=== PATIENT | female | born 1975 | race American Indian/Alaskan Native ===

== ENCOUNTER 2022-04-11 11:30 | Day surgery (SDC) | payer OTHER ==
[~2022-04-11 11:30] MED LIST: Lactated Ringers 1,000 ML IV SCH
[2022-04-11] MEDS ORDERED: Propofol 200 MG/20 ML SDV ONE ×2 (13:20→13:33)
[2022-04-11] MEDS ORDERED: Lidocaine 2% 5 ML SDV ONE (13:20)
[2022-04-11] MEDS ORDERED: Lactated Ringers 1,000 ML IV SCH (14:00)
== END 2022-04-11 14:14 | disposition home or self-care (01) ==
LOC: MW.SDS 11:30
PROVIDERS: ATTEND Surgery
DX: K62.5 Hemorrhage of anus and rectum (principal); K59.09 Other constipation; E66.9 Obesity, unspecified; J45.20 Mild intermittent asthma, uncomplicated; F17.210 Nicotine dependence, cigarettes, uncomplicated; Z79.899 Other long term (current) drug therapy; Z98.890 Other specified postprocedural states; Z68.32 Body mass index [BMI] 32.0-32.9, adult; Z90.710 Acquired absence of both cervix and uterus
CPT/HCPCS: 45378; J2704; J7120; J3490